=== PATIENT | female | born 1995 | race Caucasian/White ===

== ENCOUNTER 2021-01-11 11:38 | Outpatient (CLI) | payer OTHER | END 2021-01-11 14:25 | disposition home or self-care (01) | LOC: PRENATAL 11:38 | PROVIDERS: ATTEND Obstetrics & Gynecology Maternal & Fetal Medicine | DX: O35.0XX1 Maternal care for (suspected) central nervous system malformation in fetus, fetus 1 (principal); O35.3XX1 Maternal care for (suspected) damage to fetus from viral disease in mother, fetus 1; O98.512 Other viral diseases complicating pregnancy, second trimester; O99.212 Obesity complicating pregnancy, second trimester; Z36.89 Encounter for other specified antenatal screening; Z3A.28 28 weeks gestation of pregnancy ==

== ENCOUNTER 2021-03-21 09:15 | Inpatient (IN) | payer OTHER ==
[~2021-03-21] VITALS: Ht 160 cm; Wt 99.8 kg
[2021-03-21] MEDS ORDERED: PRENA1 TRUE CO1 EACH PO (12:58)
== END 2021-03-26 13:33 | disposition home or self-care (01) | DRG 785 ==
LOC: OB/GYN 03-23 06:00 → O/R 03-23 06:00 → OB/GYN 03-23 09:15 → O/R 03-23 09:39 → OB/GYN 03-23 15:05
PROVIDERS: ADMIT Specialist; ATTEND Specialist
PROC: 0UB70ZZ Excision of Bilateral Fallopian Tubes, Open Approach (ICD-10-PCS; 2021-03-23)
PROC: 4A1HXFZ Monitoring of Products of Conception, Cardiac Rhythm, External Approach (ICD-10-PCS; 2021-03-23)
PROC: 10D00Z1 Extraction of Products of Conception, Low, Open Approach (ICD-10-PCS; principal; 2021-03-23 09:30)
DX: O34.211 Maternal care for low transverse scar from previous cesarean delivery (principal); O99.824 Streptococcus B carrier state complicating childbirth; Z30.2 Encounter for sterilization; Z37.0 Single live birth; Z3A.39 39 weeks gestation of pregnancy

== ENCOUNTER 2021-04-05 00:23 | Emergency (ER) | payer OTHER ==
[~2021-04-05] VITALS: Ht 162.6 cm; Wt 88.9 kg
[~2021-04-05 00:23] MED LIST: PRENA1 TRUE CO1 EACH PO
[2021-04-05] MEDS ORDERED: CEFUROXIME500 MG PO (03:56)
== END 2021-04-05 04:03 ==
LOC: ER 00:23
DX: N39.0 Urinary tract infection, site not specified (principal)

== ENCOUNTER 2021-07-22 13:18 | Emergency (ER) | payer OTHER ==
[~2021-07-22] VITALS: Ht 162.6 cm; Wt 79.4 kg
[~2021-07-22 13:18] MED LIST changes: +CEFUROXIME500 MG PO
== END 2021-07-22 15:25 | disposition home or self-care (01) ==
LOC: ER 13:18
DX: M25.562 Pain in left knee (principal)

== ENCOUNTER 2021-07-26 08:34 | Outpatient (CLI) | payer OTHER | END 2021-07-26 08:38 | disposition home or self-care (01) | LOC: NUCLEAR 08:34 | PROVIDERS: ATTEND General Practice | DX: C54.1 Malignant neoplasm of endometrium (principal) ==